=== PATIENT | male | born 1995 ===

== ENCOUNTER → 2024-10-27 08:00 | Outpatient (BNV) | payer OTHER, SELFPAY | PROVIDERS: Visit Provider Internal Medicine Cardiovascular Disease | DX: R00.0 Tachycardia, unspecified (principal) | CPT/HCPCS: 93244 ==

== ENCOUNTER → 2024-10-27 15:00 | Outpatient (REF) | payer OTHER, SELFPAY | LOC: HO.CARD 15:00 | PROVIDERS: Visit Provider Emergency Medicine | DX: R07.89 Other chest pain (principal) | CPT/HCPCS: 93242 ==